=== PATIENT | female | born 1985 | race African-American/Black ===

== ENCOUNTER 2018-09-18 10:57 | Emergency (ER) | payer SELFPAY ==
[~2018-09-18] VITALS: Ht 167.6 cm; Wt 59.0 kg
[2018-09-18] MEDS ORDERED: HYDROCODONE/ACETAMINOPHEN 10/325MG TABLET PO ONE (12:15)
[2018-09-18 13:54] VITALS: BP 114/67
== END 2018-09-18 14:41 | disposition home or self-care (01) ==
LOC: ER 12:25
DX: S62.015A Nondisplaced fracture of distal pole of navicular [scaphoid] bone of left wrist, initial encounter for closed fracture (principal); V48.4XXA Person boarding or alighting a car injured in noncollision transport accident, initial encounter; Y93.89 Activity, other specified; Y92.89 Other specified places as the place of occurrence of the external cause; F12.90 Cannabis use, unspecified, uncomplicated
CPT/HCPCS: 29125; 73090; 73110; 73130; 99283; Z7610